=== PATIENT | female | born 1945 | race Caucasian/White ===

== ENCOUNTER → 2021-06-26 | Outpatient (CLI) | payer OTHER ==
[~2021-06-26] MED LIST: HYCODAN/HYDROMET5 ML PO; LISINOPRIL20 MG PO; VITAMIN D50000 I1 PO; ZITHROMAX250 MG PO
== END | disposition home or self-care (01) ==
LOC: COVID19 17:00
PROVIDERS: ATTEND Family Medicine
DX: U07.1 COVID-19 (principal)